=== PATIENT | male | born 1960 | race Two or more races ===

== ENCOUNTER 2023-11-16 16:39 | Inpatient (IN) | payer MEDICARE ==
[~2023-11-16] VITALS: Ht 182.9 cm; Wt 53.5 kg
[2023-11-16] MEDS ORDERED: ACETAMINOPHEN 325 MG TABLET PO PRN (23:30)
[2023-11-16] MEDS ORDERED: HydrALAZINE HCL 25 MG TABLET PO PRN (23:45)
[2023-11-17] VITALS (7 sets, daily range): BP systolic 131–138; BP diastolic 75–98; PULSE 75–95; RESP 18; TEMP 97.4–98.6; O2SAT 98–100
[2023-11-17] MEDS: HEPARIN SODIUM,PORCINE 5,000 UNITS/ML VIAL SQ SCH (07:59)
[2023-11-17] MEDS: ETHYL ALCOHOL 62% ANTISEPTIC NASAL SANITIZER 0.6 ML AMPUL NASAL SCH (08:01)
[2023-11-17] MEDS: ASPIRIN 81 MG CHEWABLE TABLET PO SCH (08:02)
[2023-11-17] MEDS: LOSARTAN POTASSIUM 50 MG TABLET PO SCH (08:02)
[2023-11-17] MEDS: CHLORTHALIDONE 25 MG TABLET PO SCH (08:02)
[2023-11-17] MEDS: MULTIVITAMINS WITH MINERALS, THERAPEUTIC TABLET PO SCH (08:02)
[2023-11-17 08:11] LABS: EOSINOPHILS % (AUTO) 0.7 % (1.0-6.0); HEMATOCRIT 47.8 % (41-53); HEMOGLOBIN 15.9 g/dL (13.5-17.5); LYMPHOCYTES # (AUTO) 1.4 K/uL (1.0-4.8); LYMPHOCYTES % (AUTO) 19.6 % (22.0-44.0); MEAN CORPUSCULAR HEMOGLOBIN 33.3 pg (26.0-34.0); MEAN CORPUSCULAR HGB CONC 33.4 G/dL (31.0-37.0); MEAN CORPUSCULAR VOLUME 100 fL (80-100); MONOCYTES # (AUTO) 0.6 K/uL (0.1-1.0); MONOCYTES % (AUTO) 8.6 % (2.0-9.0); NEUTROPHILS # (AUTO) 4.9 K/uL (1.8-7.7); NEUTROPHILS % (AUTO) 70.1 % (40.0-70.0); PLATELET COUNT (AUTO) 227 K/uL (150-450); RED BLOOD CELL COUNT(AUTO) 4.79 MIL/uL (4.50-5.90); RED CELL DISTRIBUTION WIDTH 13.8 % (11.5-14.5)
[2023-11-17 08:30] LABS: ALANINE AMINOTRANSFERASE 12 U/L (12-78); ALBUMIN 3.1 g/dL (3.4-5.0); ALKALINE PHOSPHATASE 80 U/L (46-116); ANION GAP 10 mmol/L (8-16); ASPARTATE AMINOTRANSFERASE 17 U/L (15-37); BILIRUBIN,TOTAL 0.9 mg/dL (0.1-1.0); CARBON DIOXIDE 28 mmol/L (22-29); CHLORIDE 97 mmol/L (98-107); CREATININE 0.74 mg/dL (0.60-1.30); GLOMERULAR FILTR. RATE CALC > 60 mL/min (>60); GLUCOSE,RANDOM 84 mg/dL (70-110); POTASSIUM 3.6 mmol/L (3.5-5.1); SODIUM SERUM 135 mmol/L (136-145); TOTAL PROTEIN, SERUM 7.1 g/dL (6.4-8.2); UREA NITROGEN, BLOOD 13 mg/dL (7-18)
[2023-11-17] MEDS: ATORVASTATIN CALCIUM 40 MG TABLET PO SCH (19:56)
[2023-11-17] MEDS: NICOTINE 14 MG/24 HOUR PATCH TD SCH (19:58)
[2023-11-18 08:00] VITALS: BP 140/96; PULSE 84; RESP 18; TEMP 97.3; O2SAT 98
[2023-11-18] MEDS ORDERED: SODIUM CHLORIDE 0.9% 500 ML IV ONE (10:21)
[2023-11-18 10:30] VITALS: BP 98/63; PULSE 98; RESP 18; TEMP 97.4; O2SAT 100
[2023-11-18] MEDS ORDERED: SODIUM CHLORIDE 0.9% 500 ML IV SCH ×2 (10:30→11:15)
[2023-11-18 11:00] VITALS: BP 101/74; PULSE 82; RESP 18; O2SAT 100
[2023-11-18 11:16] LABS: GLUCOMETER DEV NAME(LOC) 2WR.2B; GLUCOSE,POINT OF CARE 146 MG/DL (70-110)
[2023-11-18] MEDS: SODIUM CHLORIDE 0.9% 500 ML IV ONE (11:17)
[2023-11-18 11:40] VITALS: BP 142/86; PULSE 93; RESP 18
[2023-11-18 20:00] VITALS: O2SAT 98
[2023-11-18 20:03] VITALS: BP 127/81; PULSE 78; RESP 18; TEMP 97.6; O2SAT 98
[2023-11-19 08:00] VITALS: BP 106/57; PULSE 90; RESP 19; TEMP 97.5; O2SAT 100
[2023-11-19 11:30] VITALS: BP 140/79; PULSE 69; RESP 19; O2SAT 98
[2023-11-19 20:03] VITALS: BP 112/62; PULSE 82; RESP 18; TEMP 98.3; O2SAT 97
[2023-11-19] MEDS: 0.9% SODIUM CHLORIDE 10 ML SYRINGE IVP SCH (21:17)
[2023-11-19 23:15] VITALS: O2SAT 97
[2023-11-20 08:00] VITALS: BP 141/95; PULSE 95; RESP 19; TEMP 98.2; O2SAT 99
[2023-11-20 20:13] VITALS: BP 131/83; PULSE 77; RESP 18; TEMP 97.5; O2SAT 98
[2023-11-20 23:53] VITALS: O2SAT 98
[2023-11-21 08:00] VITALS: BP 129/78; PULSE 77; RESP 18; TEMP 97.4; O2SAT 98
[2023-11-21 20:14] VITALS: BP 141/75; PULSE 68; RESP 18; TEMP 97.9; O2SAT 97
[2023-11-21 20:15] VITALS: O2SAT 97
[2023-11-22] MEDS ORDERED: CHL25 PO (02:58)
[2023-11-22] MEDS ORDERED: LOSA-382 PO (02:58)
[2023-11-22] MEDS ORDERED: ATOR40TA28 PO (02:58)
[2023-11-22] MEDS ORDERED: ASPI-1450 PO (02:58)
[2023-11-22] MEDS ORDERED: MULT-248 PO (02:58)
[2023-11-22 07:40] VITALS: BP 133/98; PULSE 80; RESP 19; TEMP 97.5; O2SAT 98
[2023-11-22] MEDS: LOSARTAN POTASSIUM 50 MG TABLET PO SCH (07:43)
[2023-11-22] MEDS: CHLORTHALIDONE 25 MG TABLET PO SCH (07:43)
[2023-11-22 08:30] VITALS: BP 117/68; PULSE 75; O2SAT 98
[2023-11-22 20:02] VITALS: BP 127/76; PULSE 64; RESP 18; TEMP 97.8; O2SAT 97
[2023-11-22 21:22] LABS: APPEARANCE,URINE CLEAR (CLEAR); BILIRUBIN,URINE NEGATIVE (NEGATIVE); COLOR,URINE COLORLESS (YELLOW); GLUCOSE, URINE (UA) NEGATIVE (NEGATIVE); KETONES,URINE NEGATIVE (NEGATIVE); LEUKOCYTE ESTERASE ,URINE NEGATIVE (NEGATIVE); NITRATE,URINE NEGATIVE (NEGATIVE); OCCULT BLOOD,URINE LARGE (NEGATIVE); PROTEIN,URINE NEGATIVE (NEGATIVE); SPECIFIC GRAVITIY, URINE 1.004 (1.003-1.030); UROBILINOGEN,URINE <=1.0 mg/dL (<=1.0)
[2023-11-22 21:29] LABS: BACTERIA,URINE None Seen /HPF (None Seen); RBC,URINE 26-50 /HPF (0-2); SQUAMOUS EPITHELIAL CELL,UR None Seen /LPF (None Seen); WBC,URINE None Seen /HPF (0-5)
[2023-11-22 22:57] VITALS: O2SAT 97
[2023-11-23 08:00] VITALS: BP 134/92; PULSE 68; RESP 19; TEMP 97.8; O2SAT 99
[2023-11-23 09:45] VITALS: BP 97/73; PULSE 94; RESP 19; O2SAT 99
[2023-11-23 20:24] VITALS: BP 143/52; PULSE 77; RESP 19; TEMP 98.1; O2SAT 98
[2023-11-23 23:11] VITALS: O2SAT 98
[2023-11-24] MEDS ORDERED: SENNOSIDES 8.6 MG TABLET PO PRN (03:30)
[2023-11-24 08:00] VITALS: BP 139/90; PULSE 72; RESP 18; TEMP 97.8; O2SAT 99
[2023-11-24 08:03] LABS: BASOPHILS % (AUTO) 0.6 % (0.0-2.0); EOSINOPHILS % (AUTO) 1.3 % (1.0-6.0); HEMOGLOBIN 14.2 g/dL (13.5-17.5); LYMPHOCYTES # (AUTO) 1.7 K/uL (1.0-4.8); MEAN CORPUSCULAR HGB CONC 33.9 G/dL (31.0-37.0); MEAN CORPUSCULAR VOLUME 100 fL (80-100); MONOCYTES # (AUTO) 1.5 K/uL (0.1-1.0); MONOCYTES % (AUTO) 14.5 % (2.0-9.0); NEUTROPHILS # (AUTO) 6.8 K/uL (1.8-7.7); NEUTROPHILS % (AUTO) 66.6 % (40.0-70.0); PLATELET COUNT (AUTO) 201 K/uL (150-450); RED BLOOD CELL COUNT(AUTO) 4.19 MIL/uL (4.50-5.90); RED CELL DISTRIBUTION WIDTH 13.5 % (11.5-14.5); WHITE BLOOD COUNT (AUTO) 10.2 K/uL (4.5-11.0)
[2023-11-24 08:07] LABS: RBC MORPHOLOGY COMMENT ABNORMAL RBC MORPH
[2023-11-24] MEDS: DOCUSATE SODIUM 100 MG CAPSULE PO SCH (08:07)
[2023-11-24 08:32] LABS: ANION GAP 10 mmol/L (8-16); CALCIUM, TOTAL 9.3 mg/dL (8.8-10.5); CARBON DIOXIDE 28 mmol/L (22-29); CHLORIDE 97 mmol/L (98-107); CREATININE 0.66 mg/dL (0.60-1.30); GLOMERULAR FILTR. RATE CALC > 60 mL/min (>60); GLUCOSE,RANDOM 85 mg/dL (70-110); POTASSIUM 4.2 mmol/L (3.5-5.1); SODIUM SERUM 135 mmol/L (136-145); UREA NITROGEN, BLOOD 22 mg/dL (7-18)
[2023-11-24 09:46] VITALS: BP 91/69; PULSE 93; RESP 18
[2023-11-24 19:43] VITALS: BP 112/76; PULSE 82; RESP 18; TEMP 97.4; O2SAT 99
[2023-11-24] MEDS: SENNOSIDES 8.6 MG TABLET PO SCH (19:45)
[2023-11-24 21:38] VITALS: O2SAT 99
[2023-11-25 09:21] VITALS: BP 140/73; PULSE 73; RESP 18; TEMP 98; O2SAT 98
[2023-11-25 09:23] VITALS: O2SAT 98
[2023-11-25 18:57] LABS: APPEARANCE,URINE CLEAR (CLEAR); BILIRUBIN,URINE NEGATIVE (NEGATIVE); COLOR,URINE LIGHT YELLOW (YELLOW); GLUCOSE, URINE (UA) NEGATIVE (NEGATIVE); LEUKOCYTE ESTERASE ,URINE NEGATIVE (NEGATIVE); NITRATE,URINE NEGATIVE (NEGATIVE); OCCULT BLOOD,URINE NEGATIVE (NEGATIVE); PH,URINE 6.5 (5.0-8.0); PROTEIN,URINE NEGATIVE (NEGATIVE); SPECIFIC GRAVITIY, URINE 1.011 (1.003-1.030); UROBILINOGEN,URINE <=1.0 mg/dL (<=1.0)
[2023-11-25 19:00] LABS: BACTERIA,URINE Rare /HPF (None Seen); RBC,URINE 0-2 /HPF (0-2); SQUAMOUS EPITHELIAL CELL,UR Rare /LPF (None Seen); WBC,URINE None Seen /HPF (0-5)
[2023-11-25 20:00] VITALS: BP 126/77; PULSE 67; RESP 20; TEMP 97.6; O2SAT 97
[2023-11-26 08:00] VITALS: BP 124/76; PULSE 81; RESP 18; TEMP 98; O2SAT 97
[2023-11-26 20:00] VITALS: BP 125/79; PULSE 83; RESP 19; TEMP 98.3; O2SAT 99
[2023-11-27 08:00] VITALS: BP 129/75; PULSE 69; RESP 18; TEMP 97.4; O2SAT 100
[2023-11-27 20:17] VITALS: BP 142/90; PULSE 77; RESP 18; TEMP 97.6; O2SAT 98
[2023-11-27 20:58] VITALS: O2SAT 98
[2023-11-28 07:56] LABS: ANION GAP 7 mmol/L (8-16); CALCIUM, TOTAL 9.2 mg/dL (8.8-10.5); CARBON DIOXIDE 31 mmol/L (22-29); CHLORIDE 97 mmol/L (98-107); CREATININE 0.68 mg/dL (0.60-1.30); GLOMERULAR FILTR. RATE CALC > 60 mL/min (>60); GLUCOSE,RANDOM 91 mg/dL (70-110); POTASSIUM 4.4 mmol/L (3.5-5.1); SODIUM SERUM 135 mmol/L (136-145); UREA NITROGEN, BLOOD 11 mg/dL (7-18)
[2023-11-28 08:00] VITALS: BP 147/85; PULSE 72; RESP 18; TEMP 97.6; O2SAT 99
[2023-11-28] MEDS ORDERED: NICO-703 TD (10:32)
[2023-11-28] MEDS ORDERED: ATOR40TA71 PO (10:32)
[2023-11-28] MEDS ORDERED: MULT-1303 PO (10:32)
[2023-11-28] MEDS ORDERED: ASPI-1450 PO (10:32)
[2023-11-28] MEDS ORDERED: LOSA-382 PO (10:32)
[2023-11-28 20:05] VITALS: BP 138/80; PULSE 82; RESP 19; TEMP 97.6; O2SAT 97
[2023-11-28 20:58] VITALS: O2SAT 97
[2023-11-29 08:00] VITALS: BP 152/97; PULSE 79; RESP 18; TEMP 97.7; O2SAT 100
[2023-11-29 20:36] VITALS: BP 143/77; PULSE 76; RESP 18; TEMP 98; O2SAT 99
[2023-11-29 20:38] VITALS: O2SAT 99
[2023-11-30 08:30] VITALS: BP 138/78; PULSE 68; RESP 18; TEMP 98.2; O2SAT 98
[2023-11-30 08:47] VITALS: O2SAT 98
== END 2023-11-30 16:04 | disposition home or self-care (01) | DRG 65 ==
LOC: 2WR 23:23
PROVIDERS: ADMIT Physical Medicine & Rehabilitation; ATTEND Physical Medicine & Rehabilitation
DX: I63.89 Other cerebral infarction (principal); E46 Unspecified protein-calorie malnutrition; G81.94 Hemiplegia, unspecified affecting left nondominant side; E87.1 Hypo-osmolality and hyponatremia; Z68.1 Body mass index [BMI] 19.9 or less, adult; I10 Essential (primary) hypertension; R13.12 Dysphagia, oropharyngeal phase; F10.90 Alcohol use, unspecified, uncomplicated; E78.5 Hyperlipidemia, unspecified; Z74.09 Other reduced mobility; R35.1 Nocturia; F17.210 Nicotine dependence, cigarettes, uncomplicated; R45.87 Impulsiveness; R47.1 Dysarthria and anarthria; Z82.49 Family history of ischemic heart disease and other diseases of the circulatory system
CPT/HCPCS: 74230; 80048; 80053; 81001; 82962; 85025; 87081; 92507; 92523; 92526; 92611; 97110; 97112; 97116; 97163; 97166; 97530; 97535; 99366; J1644; J7040